=== PATIENT | male | born 2000 | race Caucasian/White ===

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

== ENCOUNTER 2022-09-16 14:02 | Emergency (ER) | payer OTHER, SELFPAY ==
[2022-09-16 15:12] LABS: Influenza A PCR NEGATIVE (Negative); Influenza B PCR NEGATIVE (Negative); Resp Syncy Virus RNA Qual PCR NEGATIVE (Negative); SARS COV2 PCR INHOUSE NEGATIVE (Negative)
[2022-09-16 15:21] VITALS: BP 140/73; PULSE 79; RESP 18; TEMP 36.9; O2SAT 97; BMI 33.3
== END 2022-09-16 20:46 | disposition left against medical advice (07) ==
PROVIDERS: Emergency Provider Emergency Medicine
DX: R06.02 Shortness of breath (principal); Z20.822 Contact with and (suspected) exposure to COVID-19
CPT/HCPCS: 0241U; 99281; 99283

== ENCOUNTER 2022-10-20 02:18 | Emergency (ER) | payer OTHER, SELFPAY ==
--- NOTE | ~2022-10-20 | XR_ITS ---
EXAMINATION: XR CHEST CLINICAL INFORMATION: Chest congestion. COMPARISON: Chest radiograph 11/28/2021. TECHNIQUE: Frontal view of the chest was obtained. FINDINGS: Normal appearance of the cardiomediastinal structures. No effusions or pneumothoraces. Normal pattern of pulmonary vasculature. No focal pulmonary consolidation. No skeletal abnormalities identified. XR/XR chest 1V IMPRESSION: Normal chest. Lungs clear.
[2022-10-20 02:29] VITALS: BP 123/75; PULSE 81; RESP 18; TEMP 37.1; O2SAT 96; BMI 29.9
[2022-10-20 04:39] VITALS: BP 122/73; PULSE 69; RESP 18; TEMP 36.3; O2SAT 96
[2022-10-20 06:27] VITALS: BP 145/65; PULSE 80; RESP 18; TEMP 36.8; O2SAT 95
--- NOTE | 2022-10-20 08:26 | ED.GENADULT ---
HPI - General Adult General Chief complaint: Upper Respiratory Symptoms Stated complaint: Respiratory Infection Time Seen by Provider: 10/20/22 08:25 Source: patient Mode of arrival: ambulatory Limitations: no limitations History of Present Illness HPI narrative: Patient is a 22 year old assigned male at with no reported medical history presenting to the emergency department today with a cough. Patient states that over the last 3 days he has had a cough and it does not seem to be getting better. Patient states that he was seen at an Urgent Care yesterday and it hasn't gotten better. Patient denies any dizziness, lightheadedness, abdominal pain, nausea, vomiting, fever, chills, blurry vision, double vision, loss of vision, chest pain, difficulty breathing, shortness of breath, back pain, night sweats, pain with urination, increased urinary frequency, increased urinary urgency, blood in his urine or stool, syncope or a near syncopal episode, recent trauma or falls, bowel incontinence, bladder incontinence, bowel retention, bladder retention, or any other complaints at this time. Onset (ago): day(s) (3) Severity: mild Severity scale (1-10): 3 Relieving factors: none Exacerbating factors: none Associated symptoms: cough Treatments prior to arrival: none Related Data Previous Rx's Medication Instructions Recorded ibuprofen 600 mg tablet 600 mg PO Q8H PRN pain #10 tabs 06/18/21 ondansetron 4 mg disintegrating 4 mg PO Q6H PRN nausea and 11/28/21 tablet vomiting #10 tabs Allergies Allergy/AdvReac Type Severity Reaction Status Date / Time No Known Allergies Allergy Verified 02/11/21 14:14 Review of Systems Constitutional: Constitutional: Reports no additional constitutional complaints, Denies chills, Denies fever(s) and Denies night sweats Eyes: Eyes: Reports no additional eye complaints, Denies blurry vision, Denies change in vision, Denies diplopia, Denies eye discharge, Denies loss of vision and Denies eye pain ENT: Denies dizziness Cardiovascular: Cardiovascular: Reports no additional cardiovascular complaints, Denies chest pain, Denies lightheadedness, Denies Loss of Consciousness and Denies dyspnea Respiratory: Respiratory: Reports no additional respiratory complaints, Reports cough and Denies dyspnea Gastrointestinal: Gastrointestinal: Reports no additional gastrointestinal complaints, Denies abdominal pain, Denies melena, Denies hematochezia, Denies change in bowel habits and Denies change in stool character Genitourinary: Genitourinary: Reports no additional male genitourinary complaints, Denies hematuria, Denies oliguria, Denies difficulty urinating, Denies dysuria, Denies urinary frequency, Denies urinary hesitancy, Denies urinary incontinence and Denies urinary urgency Musculoskeletal: Musculoskeletal: Reports no additional musculoskeletal complaints, Denies numbness and Denies tingling Neurologic: Denies dizziness, Denies loss of vision, Denies numbness and Denies tingling Psychiatric: Psychiatric: Reports no additional psychiatric complaints Endocrine: Endocrine: Reports no additional endocrine complaints Hematologic/Lymphatic: Hematologic/Lymphatic: Reports no additional hematologic/lymphatic complaints Allergic/Immunologic: Allergic/Immunologic: Reports no additional allergic/immunologic complaints [facility]LY [facility] Past Medical History Attestation statement: The following information was validated with the patient. Source: old records reviewed Medical History Asthma Surgical History No pertinent past surgical history Social History Social History Advance Directives: No Advance Directives Information Provided: No Physical Exam ED Vital Signs: Vital Signs - 24 hr 10/20/22 02:29 10/20/22 04:39 10/20/22 06:27 Temperature 98.8 F 97.4 F 98.2 F Pulse Rate 81 69 80 Respiratory Rate 18 18 18 Blood Pressure 123/75 122/73 145/65 H Pulse Oximetry 96 96 95 Oxygen Delivery Method Room Air 10/20/22 09:32 Temperature 98.5 F Pulse Rate 80 Respiratory Rate 14 Blood Pressure 135/75 Pulse Oximetry 96 Oxygen Delivery Method Room Air BMI result Body Mass Index 29.9 Const General: cooperative, no acute distress, alert and awake Nutritional Appearance: well nourished Orientation/consciousness: patient oriented x3 Limitations: no limitations HENMT Head: Yes normal to inspection and Yes atraumatic Ears: hearing grossly normal bilaterally and external ears normal General nose exam: Normal external nose present, no nasal discharge noted and no epistaxis Face and sinus: Yes normal facial exam, No abrasion and No laceration Mouth: Normal oral and palatal mucosa present, no drooling and no muffled voice Eyes General: appearance normal, both eyes and all related structures Periorbital: periorbital findings normal Eyelids: Yes eyelids normal Conjunctivae: conjunctivae normal Pupils: Equal, round and reactive pupils present EOM: EOMs intact bilaterally Neck Neck: Yes normal visual inspection, Yes full ROM and Yes no lymphadenopathy Chest Chest palpation & inspection: normal inspection of the chest Resp Effort & Inspection: normal respiratory effort and able to speak in complete sentences Auscultation: clear to auscultation bilaterally Cardio Rate: regular rate Rhythm: regular rhythm GI Inspection: Yes normal to inspection Neuro General: patient oriented x3 and moves all extremities Cranial nerves: Yes Equal, round and reactive pupils present Cognition (Neuro): normal cognition Motor exam (neuro): 5/5 motor strength present throughout Sensory Exam: Normal double simultaneous stimulation for sensation Coordination: [id number] test normal Extrem General: Yes normal to inspection, Yes full ROM and Yes capillary refill normal Psych Appearance: grossly normal Mental Status: mental status grossly normal Affect: normal affect Attitude: cooperative Thought process: Normal thought process present Thought content: Normal thought content present Insight: Good insight present (Psych) Medical Decision Making Medical Decision Making MDM Narrative: Patient is a 22 year old assigned male at with no reported medical history presenting to the emergency department today with a cough. Patient's physical exam was unremarkable. Patient's RSV/Influenza/COVID-19 swab was negative. Patient's chest x-ray showed no acute process. I explained my physical exam findings as well as all test results to the patient. I answered all questions asked by the patient. I stressed the importance of the patient taking his medication as prescribed. I stressed the importance of the patient following up with his primary care provider. I stressed the importance of the patient returning to the emergency department immediately if his symptoms were to worsen or if he were to develop any dizziness, shortness of breath, difficulty breathing, chest pain, blurry vision, loss of vision, nausea, vomiting, abdominal pain, fever, chills, back pain, or any other complaints. Patient verbalized agreement and understanding with this treatment plan and discharge. Differential Diagnoses: Differential diagnosis (upper respiratory infection) Differential Diagnosis: The differential diagnosis associated with the patient?s presentation includes: Discharge Plan Discharge Clinical Impression: Upper respiratory infection Patient Disposition: Home, Self-Care Instructions: Upper Respiratory Infection (ED) Additional Instructions: Follow up with your primary care provider. Return to the emergency department immediately if your symptoms worsen or if you develop any dizziness, shortness of breath, difficulty breathing, chest pain, blurry vision, loss of vision, nausea, vomiting, abdominal pain, fever, chills, back pain, or any other complaints. Prescriptions: No Action ibuprofen 600 mg tablet 600 mg PO Q8H PRN (Reason: pain) Qty: 10 0RF ondansetron 4 mg tablet,disintegrating 4 mg PO Q6H PRN (Reason: nausea and vomiting) Qty: 10 0RF Referrals: [facility] [place] Family Medicine [Provider Group] (Call to establish and follow up with a primary care provider. If you already have a primary care provider, please follow up with them. ) [facility] [place] Primary CareJohn [Provider Group] (Call to establish and follow up with a primary care provider. If you already have a primary care provider, please follow up with them. ) [facility] [place] Primary CareJudy [Provider Group] (Call to establish and follow up with a primary care provider. If you already have a primary care provider, please follow up with them. ) Stand Alone Forms: Work/School Release Interventions: ED Discharge Assessment Last Done: 10/20/22 09:59 Discharge Date/Time: 10/20/22 10:00 Print Language: Malay
[2022-10-20 09:20] LABS: Influenza A PCR NEGATIVE (Negative); Influenza B PCR NEGATIVE (Negative); Resp Syncy Virus RNA Qual PCR NEGATIVE (Negative); SARS COV2 PCR INHOUSE NEGATIVE (Negative)
[2022-10-20 09:32] VITALS: BP 135/75; PULSE 80; RESP 14; TEMP 36.9; O2SAT 96
--- NOTE | 2022-10-20 09:58 | PC.NURSE ---
PT AWAKE, ALERT AND ORIENTED X 3. SKIN WARM AND DRY RESP UNLABORED. DENIES N/V. AIRWAY PATENT. MANAGING SECRETIONS. SPEAKING IN FULL CLEAR SENTENCES. EVALUATED BY PROVIDER. RESULTS OF SWABS DISCUSSED. PLAN IS FOR DC HOME AND PATIENT IS AGREEABLE.
== END 2022-10-20 10:00 | disposition home or self-care (01) ==
PROVIDERS: Physician Assistant Medical; Emergency Provider Emergency Medicine
DX: J06.9 Acute upper respiratory infection, unspecified (principal); R07.89 Other chest pain; R05.9 Cough, unspecified; Z20.822 Contact with and (suspected) exposure to COVID-19; Z79.899 Other long term (current) drug therapy
CPT/HCPCS: 0241U; 71045; 99283

== ENCOUNTER 2023-04-09 09:11 | Emergency (ER) | payer OTHER, SELFPAY ==
[2023-04-09 09:35] VITALS: BP 146/82; PULSE 83; RESP 20; TEMP 36.6; O2SAT 97; BMI 29.0
--- NOTE | 2023-04-09 09:54 | ED_ITS ---
HPI - Skin/Abscess/Foreign Bdy General Chief complaint: Skin/Abscess/Foreign Body Stated complaint: cyst Time Seen by Provider: 04/09/23 09:41 Source: patient Mode of arrival: ambulatory Limitations: no limitations History of Present Illness HPI narrative: 23 yo male presents to the ER for evaluation of a left upper thigh lesion for the last 2 days. He States it was starting to drain some blood this morning. It is located on the back of his thigh. MD complaint: lesion Onset (ago): day(s) (2) Tetanus up to date: unsure Location: LLE Severity: moderate Relieving factors: none Exacerbating factors: none Context: none Associated symptoms: denies other symptoms Treatments prior to arrival: attempted to drain pus at home Related Data Previous Rx's Medication Instructions Recorded ibuprofen 600 mg tablet 600 mg PO Q8H PRN pain #10 tabs 06/18/21 ondansetron 4 mg disintegrating 4 mg PO Q6H PRN nausea and 11/28/21 tablet vomiting #10 tabs Allergies Allergy/AdvReac Type Severity Reaction Status Date / Time No Known Allergies Allergy Verified 04/09/23 09:37 Review of Systems Review of Systems: Yes all other systems are reviewed and are negative [facility] Past Medical History Medical History Asthma Surgical History No pertinent past surgical history Social History Social History Advance Directives: No Physical Exam Vital Signs: Vital Signs: Last Vital Signs Temp 97.9 F 04/09/23 09:35 Pulse 83 04/09/23 09:35 Resp 20 04/09/23 09:35 BP 146/82 H 04/09/23 09:35 Pulse Ox 97 04/09/23 09:35 O2 Del Method Room Air 04/09/23 09:35 BMI result Body Mass Index 29.0 Appearance: Alert male in his early 20s. No acute distress. HEENT: normal inspection Chest: Normal inspection, equal and symmetrical chest rise and fall. Respiratory: No respiratory distress. speaks in complete sentences Skin: Skin warm and dry. Normal skin color. Normal skin turgor. No rashes. Extremities: Normal external in inspection, normal range of motion. Neuro: Oriented X 3. Grossly normal, steady gait Course Reevaluation(s) Reevaluation #1: Patient was asked to electronic data interchange specialist to a [employer] for better evaluation of the lesion on his leg, he said he was going to the parking lot to get his mother and the never returned back to the treatment room. Patient eloped from the ER prior to full evaluation and treatment. Medical Decision Making Medical Decision Making MDM Narrative: 23-year-old male presents to the ER for evaluation of left upper thigh lesion for the last couple of days with new onset of bloody drainage this morning. Unable to fully evaluate and assess the patient as he eloped from the emergency department prior to full examination and treatment. Differential Diagnosis Differential Diagnoses: The differential diagnosis associated with the presentation includes Abscess, cellulitis, tick bite, other animal bite, folliculitis, abrasion, laceration Prescription Management I considered prescription management with: Antibiotic Critical Care Time Critical Care Time Critical Care Time: No Discharge Plan Discharge Clinical Impression: Leg skin lesion, left Patient Disposition: Elopement Prescriptions: No Action ibuprofen 600 mg tablet 600 mg PO Q8H PRN (Reason: pain) Qty: 10 0RF ondansetron 4 mg tablet,disintegrating 4 mg PO Q6H PRN (Reason: nausea and vomiting) Qty: 10 0RF
== END 2023-04-09 10:19 | disposition left against medical advice (07) ==
PROVIDERS: Emergency Provider Emergency Medicine
DX: L98.9 Disorder of the skin and subcutaneous tissue, unspecified (principal)
CPT/HCPCS: 99281

== ENCOUNTER 2024-04-15 18:53 | Emergency (ER) | payer SELFPAY ==
--- NOTE | ~2024-04-15 | XR_ITS ---
EXAMINATION: XR HAND/WRIST, RIGHT CLINICAL INFORMATION: Punched brick wall. COMPARISON: None TECHNIQUE: PA, lateral, oblique, and scaphoid views of the right hand and wrist. FINDINGS: Scaphoid is intact. No appreciable metacarpal fractures. No fracture. Alignment is anatomic. Joint spaces are maintained. No erosions or soft tissue calcifications. XR/XR hand wrist RT IMPRESSION: Normal radiographs of the hand and wrist.
[2024-04-15 18:56] VITALS: BP 127/76; PULSE 82; RESP 16; TEMP 37.1; O2SAT 98; BMI 30.9
--- NOTE | 2024-04-15 19:25 | ED_ITS ---
HPI - Extremity Injury (Upper) General Chief Complaint: Extremity Problem Stated Complaint: Hand inj Time Seen by Provider: 04/15/24 19:25 Source: patient Mode of arrival: ambulatory Limitations: no limitations History of Present Illness ED Provider: Denice Jaquez PA-C HPI narrative: 24-year-old right-hand dominant male presents to the ER for evaluation of right hand pain for punching a wall. He states he punched a brick wall 1 week ago and his ring finger had to be put back into place. He is concerned he might have re- injured it. He denies any finger pain. The pain is in the 4th metacarpal with movement and palpation. no numbness or tingling. complaint: injury to: right Other Extremity Injury: right: hand Other injuries: none Handedness: right Place: home Severity: moderate Severity scale (1-10): 5 Relieving factors: rest Exacerbating factors: movement of extremity Context: direct blow Associated symptoms: denies other symptoms Related Data Previous Rx's ?Medication ?Instructions ?Recorded ibuprofen 600 mg tablet 600 mg PO Q8H PRN pain #10 tabs 06/18/21 ondansetron 4 mg disintegrating 4 mg PO Q6H PRN nausea and 11/28/21 tablet vomiting #10 tabs Allergies Allergy/AdvReac Type Severity Reaction Status Date / Time No Known Allergies Allergy Verified 04/15/24 18:58 Review of Systems Review of Systems: Yes all other systems are reviewed and are negative [facility] Past Medical History Medical History Asthma Surgical History No pertinent past surgical history Social History Social History Advance Directives: No Advance Directives Information Provided: No Do you have a plan to hurt others: No Plan Physical Exam Vital Signs: Vital Signs: Last Vital Signs Temp 98.7 F 04/15/24 19:31 Pulse 82 04/15/24 19:31 Resp 16 04/15/24 19:31 BP 127/76 04/15/24 19:31 Pulse Ox 98 04/15/24 19:31 O2 Del Method Room Air 04/15/24 19:31 BMI result Body Mass Index 30.9 Appearance: Alert. Oriented X3. No acute distress. HEENT: normal inspection CVS: Normal heart rate and rhythm. Pulses normal. Respiratory: No respiratory distress. Skin: Skin warm and dry. Normal skin color. Normal skin turgor. No rashes. Extremities: right hand with mild swelling of the dorsal hand over the 3rd and 4th metacarpals, tenderness over the 4th distal metacarpal. normal inspection of the fingers. weaker hand grasp of the right due to pain. NV intact distally. Neuro: Oriented X 3. No motor deficit. No sensory deficit. Medical Decision Making Medical Decision Making MDM Narrative: 24-year-old right-hand dominant male presents to the ER for evaluation of right hand pain after he punched a brick wall today. Similar injury 1 week ago requiring finger relocation. No gross deformities on exam. He is tender over the 3rd and 4th metacarpals without any crepitus. Neurovascularly intact distally. X-ray performed. Patient does not want to wait till the results are and because his daughter's birthday is today and they are about to sing happy birthday to her. Placed him in an velcro volar wrist splint in the meantime. Will call him with the results of the x-ray if positive for fracture Differential Diagnosis Differential Diagnoses: The differential diagnosis associated with the presentation includes Hand contusion, hand sprain, hand fracture, finger fracture Independent Interpretation I performed an independent interpretation of an: Plain X-Ray Interpretation: no appreciated fracture or dislocation Radiology Impression Discussion of test interpretation with radiology: I have reviewed the radiologist's reading. Radiologist Impression: EXAMINATION: XR HAND/WRIST, RIGHT CLINICAL INFORMATION: Punched brick wall. COMPARISON: None TECHNIQUE: PA, lateral, oblique, and scaphoid views of the right hand and wrist. FINDINGS: Scaphoid is intact. No appreciable metacarpal fractures. No fracture. Alignment is anatomic. Joint spaces are maintained. No erosions or soft tissue calcifications. XR/XR hand wrist RT IMPRESSION: Normal radiographs of the hand and wrist. External Record Review External record reviewed: Outpatient record and Prior outpatient labs Prescription Management I considered prescription management with: Pain Medication Procedures Orthopedic Splinting/Casting Injury #1: Side: right Upper Extremity Injury Location: wrist and hand Upper Extremity Immobilizer: wrist splint Critical Care Time Critical Care Time Critical Care Time: No Discharge Plan Discharge Clinical Impression: Contusion of hand Patient Disposition: Home, Self-Care Instructions: Contusion in Adults (ED) Additional Instructions: Your x-ray is not yet read by the radiologist. We will call you if you have a fracture that needs splinting. In the meantime where the provided wrist splint for immobilization and support. Limit use of the right hand. Use ice and elevate when possible. Take Motrin Tylenol as needed for pain. Stop punching things that are not pillows Prescriptions: No Action ibuprofen 600 mg tablet 600 mg PO Q8H PRN (Reason: pain) Qty: 10 0RF ondansetron 4 mg tablet,disintegrating 4 mg PO Q6H PRN (Reason: nausea and vomiting) Qty: 10 0RF Interventions: ED Discharge Assessment Last Done: 04/15/24 19:31 Discharge Date/Time: 04/15/24 19:33 Print Language: Czech
[2024-04-15 19:31] VITALS: BP 127/76; PULSE 82; RESP 16; TEMP 37.1; O2SAT 98
== END 2024-04-15 19:33 | disposition home or self-care (01) ==
LOC: HO.ED 19:31
PROVIDERS: Emergency Provider Emergency Medicine
DX: S60.221A Contusion of right hand, initial encounter (principal); W22.09XA Striking against other stationary object, initial encounter; Y93.89 Activity, other specified; Y92.9 Unspecified place or not applicable; Y99.9 Unspecified external cause status
CPT/HCPCS: 29125; 73110; 73130; 99282; 99283

== ENCOUNTER 2024-06-23 19:11 | Emergency (ER) | payer SELFPAY | END 2024-06-23 19:55 | disposition left against medical advice (07) | PROVIDERS: Emergency Provider Emergency Medicine; PCP Pediatrics | DX: M79.643 Pain in unspecified hand (principal); Z53.21 Procedure and treatment not carried out due to patient leaving prior to being seen by health care provider ==

== ENCOUNTER 2025-06-03 17:41 | Emergency (ER) | payer MEDICAID, SELFPAY ==
--- NOTE | ~2025-06-03 | XR_ITS ---
CLINICAL HISTORY: cough, shortness of breath 2 view chest x-ray Comparison: CR/SR - XR CHEST 2 VIEWS - 10/20/22 03:19 EST Findings: Heart size is normal. No consolidation, pleural effusion or pneumothorax. No acute fracture. IMPRESSION: 1. No acute findings. This document has been electronically signed by: Nancy Elise MD on 06/03/2025 18:33:49
--- NOTE | 2025-06-03 17:43 | ECG_ITS ---
Test Reason : cp Blood Pressure : */* mmHG Vent. Rate : 90 BPM Atrial Rate : 90 BPM P-R Int : 142 ms QRS Dur : 84 ms QT Int : 358 ms P-R-T Axes : 23 31 17 degrees QTcB Int : 437 ms Normal sinus rhythm Normal ECG When compared with ECG of 28-Nov-2021 12:55, No significant change was found Referred By: Generic ED Physician Electronically Signed By: Teodoro Valente
[2025-06-03 17:55] VITALS: BP 123/75; PULSE 74; RESP 16; TEMP 36.8; O2SAT 96; BMI 38.4
--- NOTE | 2025-06-03 17:58 | ED_ITS ---
HPI - Chest Pain General Chief Complaint: Upper Respiratory Symptoms Stated Complaint: chest pain ? pneumonia Time Seen by Provider: 06/03/25 19:49 History of Present Illness ED Provider: Laya BALTAZAR narrative: The patient is a 25-year-old male with a history of asthma who has been feeling unwell for about 4 or 5 days with runny nose, cough, chest pain, and a sense of wheezing. No definite fevers. He comes to the emergency room after several days of feeling unwell. He has been using his albuterol inhaler. No pain or swelling in his legs. Related Data Previous Rx's ?Medication ?Instructions ?Recorded ibuprofen 600 mg tablet 600 mg PO Q8H PRN pain #10 t abs 06/18/21 ondansetron 4 mg disintegrating 4 mg PO Q6H PRN nausea and 11/28/21 tablet vomiting #10 tabs azithromycin 250 mg tablet 250 mg PO DAILY 4 days #4 t abs 06/03/25 budesonide-formoterol HFA 160 2 puff inhalation BID #1 0.2 grams 06/03/25 mcg-4.5 mcg/actuation aerosol inhaler prednisone 20 mg tablet 40 mg (2 x 20 mg) PO DAILY 4 days 06/03/25 #8 tabs Allergies Allergy/AdvReac Type Severity Reaction Status Date / Time No Known Allergies Allergy Verified 06/03/25 17:58 Review of Systems Review of Systems: Yes all other systems are reviewed and are negative [facility] Past Medical History Medical History Asthma Surgical History No pertinent past surgical history Social History Social History Smoked in Last 30 Days: No Substance Use Type: Marijuana Substance Use Frequency: Daily Advance Directives: No Advance Directives Information Provided: No Physical Exam Vital Signs: Vital Signs: Last Vital Signs Temp 98.0 F 06/03/25 20:25 Pulse 77 06/03/25 20:25 Resp 20 06/03/25 20:25 BP 144/77 H 06/03/25 20:25 Pulse Ox 98 06/03/25 20:25 O2 Del Method Room Air 06/03/25 20:25 BMI result Body Mass Index 38.4 Const: Other: The patient is a 25-year-old male with a history of asthma. He is awake and alert. He seems to be mildly nasally congested but otherwise does not appear acutely ill. Orientation/consciousness: patient oriented x3 HEENT: Other: The face is symmetrical. ?Mucous membranes moist. Eyes: Other: Pupils are round equal, conjunctivae are clear, extraocular movements intact Neck: Neck: Yes normal visual inspection and Yes full ROM Resp: Other: No obvious increased work of breathing. The patient's lungs seem fairly clear. Possibly some minimal wheezing with a coughs. Cardio: Rate: regular rate Rhythm: regular rhythm Heart sounds: S1 normal heart sound present and S2 normal heart sound present GI: Other: Abdomen is soft and nontender Skin: Other: The skin is dry and unremarkable Neuro: General: patient oriented x3, gait normal, tone normal, moves all extremities, no focal motor deficits and CN's II-XI intact bilaterally Extrem: Other: There is no calf swelling or tenderness. No asymmetry. No peripheral edema. Course Course Course Narrative: Mindy Mills GRAIN RECEIVER 06/03 1758 Defer additional HPI, ROS, PE to primary provider. This is a rapid medical exam. 25-year-old male with a history of asthma here with chest congestion, cough, chest discomfort with coughing and wheezing. Will obtain chest x-ray and viral testing. VSS Medications Administered Discontinued Medications Generic Name Dose Route Start Last Admin Trade Name Freq PRN Reason Stop Dose Admin Azithromycin 500 mg 06/03/25 19:58 06/03/25 20:09 Azithromycin 500 Mg Tablet PO 06/03/25 19:59 500 mg ONCE ONE Administration Prednisone 60 mg 06/03/25 19:58 06/03/25 20:07 Prednisone 20 Mg Tablet PO 06/03/25 19:59 60 mg ONCE ONE Administration Medical Decision Making Medical Decision Making MDM Narrative: The patient is a 25-year-old male who presents with complaints of chest pain and shortness of breath. He has a history of asthma. He is PERC negative. He sounds as though he has a bit of a cold. His chest x-ray is negative. He is negative for COVID, RSV, and the flu. He has an unremarkable EKG that shows normal sinus rhythm at 90 beats per minute. My suspicion is that he probably has a viral respiratory illness which has triggered his asthma to some degree. He will be placed on a short course of prednisone and azithromycin. I will send a prescription for budesonide/formoterol as an inhaler. Lab Data Labs: Lab Results 06/03/25 Range/Units 19:12 Influenza Type A (PCR) NEGATIVE (Negative) Influenza Type B (PCR) NEGATIVE (Negative) RSV RNA Qual (PCR) NEGATIVE (Negative) SARS-CoV-2 RNA (RT-PCR) NEGATIVE (Negative) Discharge Plan Discharge Clinical Impression: Acute asthmatic bronchitis Patient Disposition: Home, Self-Care Instructions: Asthma (ED) Additional Instructions: Your chest x-ray shows no pneumonia. You tested negative for COVID, influenza, and RSV. Your EKGs normal. I think that you have some kind of viral illness that has triggered your asthma. You has been started on a course of prednisone. You received a dose here today. Please take your next dose tomorrow. You have also been started on the antibiotic azithromycin. You received a dose here in the emergency room. Take your next dose tomorrow. You may use your albuterol inhaler 2 puffs every 4 hours as needed. 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 You may use this inhaler just like an albuterol inhaler, 2 puffs every 4 hours as needed. However when you are feeling better I would still continue to take it 1-2 puffs in the morning and 1-2 puffs in the evening every day. Please make a follow up appointment with your regular doctor to discuss your asthma further. Return to the emergency room if you feel significantly worse. Prescriptions: New prednisone 20 mg tablet 40 mg PO DAILY 4 Days Qty: 8 0RF azithromycin 250 mg tablet 250 mg PO DAILY 4 Days Qty: 4 0RF Rx Instructions: start on day 2 of therapy budesonide-formoterol 160-4.5 mcg/actuation HFA aerosol inhaler 2 puff inhalation BID Qty: 10.2 0RF No Action ibuprofen 600 mg tablet 600 mg PO Q8H PRN (Reason: pain) Qty: 10 0RF ondansetron 4 mg tablet,disintegrating 4 mg PO Q6H PRN (Reason: nausea and vomiting) Qty: 10 0RF Referrals: [facility] [Provider Group] Interventions: ED Discharge Assessment Last Done: 06/03/25 20:25 Discharge Date/Time: 06/03/25 20:25 Print Language: Bulgarian
--- NOTE | 2025-06-03 18:47 | PC.NURSE ---
Patient is a 25-year-old male with a history of asthma daily marijuana use presents with chest congestion, cough, intermittent chest pressure with coughing and wheezing since Wednesday. Patient alert and oriented. Lungs clear bilat. Respirations even and non-labored. Abdomen soft, non-tender with positive bowel sounds. Positive pedal pulses with no edema
[2025-06-03 20:00] LABS: Resp Syncy Virus RNA Qual PCR NEGATIVE (Negative); SARS COV2 PCR INHOUSE NEGATIVE (Negative)
--- NOTE | 2025-06-03 20:09 | PC.NURSE ---
pt medicated per mar.
[2025-06-03 20:16] VITALS: BP 144/77; PULSE 77; RESP 20; TEMP 36.7; O2SAT 98
--- NOTE | 2025-06-03 20:17 | PC.NURSE ---
Vitals taken, reviewed discharge instructions with pt , pt verbalized understanding, sign of distress, pt able to speak in full sentence nor sob
[2025-06-03 20:25] VITALS: BP 144/77; PULSE 77; RESP 20; TEMP 36.7; O2SAT 98
== END 2025-06-03 20:25 | disposition home or self-care (01) ==
PROVIDERS: Nurse Practitioner Family; Emergency Provider Emergency Medicine; PCP Pediatrics
DX: J45.909 Unspecified asthma, uncomplicated (principal); R07.89 Other chest pain; Z03.818 Encounter for observation for suspected exposure to other biological agents ruled out
CPT/HCPCS: 71046; 87637; 93005; 99283; 99285

== ENCOUNTER → 2025-06-03 17:43 | Outpatient (BNV) | payer MEDICAID, SELFPAY | PROVIDERS: Emergency Provider Emergency Medicine; PCP Pediatrics; Visit Provider Internal Medicine Cardiovascular Disease | DX: R07.9 Chest pain, unspecified (principal) | CPT/HCPCS: 93010 ==

== ENCOUNTER → 2025-06-03 17:58 | Outpatient (BNV) | payer MEDICAID, SELFPAY | PROVIDERS: PCP Pediatrics; Visit Provider Specialist | DX: R06.02 Shortness of breath (principal) | CPT/HCPCS: 71046 ==

== ENCOUNTER 2025-09-24 20:33 | Inpatient (IN) | payer OTHER, SELFPAY ==
[2025-09-24 20:35] VITALS: BP 161/64; PULSE 105; RESP 20; TEMP 38.6; O2SAT 95; BMI 34.9
[2025-09-24 21:11] LABS: Alanine Aminotransferase 139 U/L (0-40); Albumin Level 4.9 g/dL (3.5-5.0); Alkaline Phosphatase 166 U/L (39-117); Anion Gap 15 (12-20); Aspartate Amino Transferase 77 U/L (5-37); Blood Urea Nitrogen 9 mg/dL (9-16); Calcium 9.2 mg/dL (8.4-10.2); Carbon Dioxide 26 mmol/L (22-29); Chloride 102 mmol/L (96-108); Creatinine Clr Calc Pharmacy 152.3; Estimated Glomerular Filt Rate > 60; Potassium 3.0 mmol/L (3.3-5.1); Sodium 140 mmol/L (135-145); Total Protein 8.3 g/dL (6.5-8.0)
[2025-09-24 21:24] LABS: Hematocrit 43.5 % (42.0-52.0); Hemoglobin 14.7 g/dl (14.0-18.0); Mean Corpuscular HGB Conc 33.8 g/dl (31.0-36.0); Mean Corpuscular Hemoglobin 28.9 pg (27.0-33.0); Mean Corpuscular Volume 85.6 fL (80.0-98.0); NRBC Abs Auto 0.000 X10*3/uL (0.0-0.012); NRBC Pct Auto 0.0 /100WBC (0.0-0.2); Platelet Count 262 X10*3/uL (160-400); Red Blood Count 5.08 X10*6/uL (4.60-5.80); White Blood Count 12.7 X10*3/uL (4.8-10.8)
[2025-09-24] MEDS: oxyCODONE HCl Immed Release 5 MG TABLET PO (21:56)
[2025-09-24] MEDS: Lidocaine HCl 1%/Epi 1:100,000 20 ML VIAL INFILTRATI (22:43)
[2025-09-24 22:44] LABS: Neutrophils Percent Manual 31 % (45-73)
[2025-09-24 22:47] LABS: Atypical Lymph Absolute Manual 0.9 x10*3/uL; Atypical Lymphs Percent Manual 7 % (0-6); Band Neutrophils Percent 13 % (3-5); Eosinophils Absolute Manual 0.3 X10*3/uL (0.0-0.4); Eosinophils Percent Manual 2 % (0-4); Lymphocytes Absolute Manual 5.2 X10*3/uL (1.2-4.9); Lymphocytes Percent Manual 41 % (20-40); Monocytes Absolute Manual 0.8 X10*3/uL (0.1-1.2); Monocytes Percent Manual 6 % (2-11); Neutrophils Absolute Manual 5.6 X10*3/uL (2.0-8.3)
[2025-09-24 22:48] LABS: RBC Morphology NORMAL
[2025-09-24] MEDS: vancomycin/NS 2,000 MG/500 ML PLAST..BAG 250 MG IV (23:34)
--- NOTE | 2025-09-24 23:51 | ED.SKABFB ---
HPI - Skin/Abscess/Foreign Bdy General Chief complaint: Skin/Abscess/Foreign Body Stated complaint: cyst by the tailbone, fever Time Seen by Provider: 09/24/25 20:42 Source: patient Mode of arrival: ambulatory Limitations: no limitations History of Present Illness ED Provider: Dr. Mirta Negrete HPI narrative: Patient comes to the emergency room complaining of a cyst on his tailbone. Patient states it has been growing throughout the last week, today it started draining foul, malodorous drainage. Patient states that at home he has been having subjective fever and chills. Denies chest pain or shortness of breath, denies urinary symptoms. Patient states that he has had abscess in the past in the arms but never in the buttocks area. Related Data Previous Rx's ?Medication ?Instructions ?Recorded ibuprofen 600 mg tablet 600 mg PO Q8H PRN pain #10 tabs 06/18/21 ondansetron 4 mg disintegrating 4 mg PO Q6H PRN nausea and 11/28/21 tablet vomiting #10 tabs azithromycin 250 mg tablet 250 mg PO DAILY 4 days #4 tabs 06/03/25 budesonide-formoterol HFA 160 2 puff inhalation BID #10.2 grams 06/03/25 mcg-4.5 mcg/actuation aerosol inhaler prednisone 20 mg tablet 40 mg (2 x 20 mg) PO DAILY 4 days 06/03/25 #8 tabs Allergies Allergy/AdvReac Type Severity Reaction Status Date / Time No Known Allergies Allergy Verified 09/24/25 20:36 Review of Systems Review of Systems: Constitutional : No Weight loss, No Fever, No Chills, No Night Sweats, No Fatigue, No Malaise ENT/Mouth : No Hearing loss, No Ear Pain, No Nasal Congestion, No Sinus Pain, No Hoarseness, No sore throat, No Rhinorrhea, No Swallowing Difficulty Eyes: No Eye Pain, No Swelling, No Redness, No Foreign Body, No Discharge, No Vision Changes Cardiovascular : No Chest Pain, No SOB, No Dyspnea on Exertion, No Orthopnea, No Edema, No Palpitations Respiratory : No Cough, No Sputum, No Wheezing, No Smoke Exposure, No Dyspnea Gastrointestinal : No Nausea, No Vomiting, No Diarrhea, No Constipation, No abdominal Pain, No Hematochezia, No Melena Genitourinary : no irregular bleeding, No Dysuria, No Urinary Frequency, No Hematuria, No Urinary Incontinence, No Urgency, No Flank Pain, No Urinary Flow Changes, No Hesitancy Musculoskeletal : No joint pain, No Myalgias, No Joint Swelling Skin : Complaining of a large painful cyst draining malodorous purulent material on the coccyx area Neuro : No Weakness, No Numbness, No Paresthesias, No Loss of Consciousness, No Dizziness, No Headache Psych : No Anxiety/Panic, No Depression, No SI/HI/AH/VH, No Social Issues, Heme/Lymph: No Bruising, No Bleeding,No Lymphadenopathy Endocrine : No Polyuria, No Polydipsia, No Temperature Intolerance [facility] Past Medical History Medical History Asthma Surgical History No pertinent past surgical history Social History Social History Substance Use Type: Marijuana Advance Directives: No Advance Directives Information Provided: No Physical Exam Exam: Exam: Appearance: Alert. Oriented X3. No acute distress. Eyes: Pupils equal, round and reactive to light. ENT: Pharynx normal. Neck: Normal inspection. Neck supple. No lymph nodes noted. No crepitus CVS: Normal heart rate and rhythm. Pulses normal. Normal S1 and S2 Respiratory: No respiratory distress. Breath sounds normal. No Wheezing. No rales Abdomen: Soft and nontender. No rigidity. No distention. Skin: Skin warm and dry. Normal skin color. Normal skin turgor. In the patient's lower back, just above the gluteal cleft, there is a large erythematous patch. With bedside ultrasound, I was able to determine that there to loculated cysts right next to each other Extremities: No lower extremity edema. No Lacerations. No Rash Neuro: Oriented X 3. No motor deficit. No sensory deficit. Moving all extremities. No slurred speech. CN 2 through 12 grossly intact Psych: calm, cooperative, normal affect Vital Signs: Vital Signs: Last Vital Signs Temp 101.5 F H 09/24/25 20:35 Pulse 105 H 09/24/25 20:35 Resp 20 09/24/25 20:35 BP 161/64 H 09/24/25 20:35 Pulse Ox 95 09/24/25 20:35 O2 Del Method Room Air 09/24/25 20:35 BMI result Body Mass Index 34.9 Course Course Course Narrative: Based on physical exam and bedside ultrasound, patient has to loculated abscesses/pilonidal cyst. Recommendation: Incision and drainage and start antibiotics. Also, we will obtain blood work since patient has been having fever Patient received p.o. medication for pain, patient agrees with plan I was informed by the patient's nurse that patient has tachycardia, fever and an abscess. At this time, sepsis is not suspected. Patient is empirically being treated with IV fluids based on ideal weight 67 kg, patient is obese. Also antibiotics have been started. All of patient's labs pending. Medications Administered Generic Name Dose Route Start Last Admin Trade Name Freq PRN Reason Stop Dose Admin Sodium Chloride 2,000 mls @ 999 mls/hr 09/24/25 22:48 09/24/25 23:02 Ns IVCONT 09/25/25 00:48 999 mls/hr .Q2H1M ONE Administration Vancomycin HCl 2,000 mg in 500 mls @ 250 mls/hr 09/24/25 22:50 09/24/25 23:34 Vancomycin/Ns IV 09/25/25 00:49 250 mls/hr ONCE ONE Administration Sodium Chloride 3 ml 09/25/25 00:00 09/25/25 00:16 0.9 % Sodium Chloride Flush 3 Ml Syringe IVFLUSH Not Given QSHIFT NANCY Discontinued Medications Generic Name Dose Route Start Last Admin Trade Name Freq PRN Reason Stop Dose Admin Acetaminophen 975 mg 09/24/25 23:47 09/24/25 23:52 Acetaminophen 325 Mg Tablet PO 09/24/25 23:48 975 mg ONCE ONE Administration Piperacillin Sod/Tazobactam 50 mls @ 100 mls/hr 09/24/25 22:50 09/24/25 23:32 Sod 3.375 gm/ Sodium Chloride IV 09/24/25 23:19 Infused ONCE ONE Infusion Ibuprofen 600 mg 09/24/25 23:47 09/24/25 23:52 Ibuprofen 600 Mg Tablet PO 09/24/25 23:48 600 mg ONCE ONE Administration Lidocaine/Epinephrine 20 ml 09/24/25 21:43 09/24/25 22:43 Lidocaine Hcl 1%/Epi 1:100,000 20 Ml Vial INFILTRATI 09/24/25 21:44 20 ml ONCE ONE Administration Oxycodone HCl 5 mg 09/24/25 21:45 09/24/25 21:56 Oxycodone Hcl Immed Release 5 Mg Tablet PO 09/24/25 21:46 5 mg ONCE ONE Administration Potassium Chloride 20 meq 09/24/25 23:50 09/25/25 00:16 Potassium Chloride Er 20 Meq Tab.Er.Prt PO 09/24/25 23:51 20 meq ONCE ONE Administration Medical Decision Making Medical Decision Making MDM Narrative: We obtain a large amount of pus. Patient has no packing My interpretation of labs: Patient's white blood cell count elevated along with bandemia of 13%. Chemistry shows a slightly decreased potassium which was repleted p.o. Patient tolerated well the procedure. Patient was started on IV fluids, vancomycin and Zosyn. Patient's lactic acid normal, no episodes of hypotension. Sepsis is not suspected Lab Data 09/24/25 20:52 09/24/25 20:52 Labs: Lab Results 09/24/25 Range/Units 20:52 WBC 12.7 H (4.8-10.8) X10*3/uL RBC 5.08 (4.60-5.80) X10*6/uL Hgb 14.7 (14.0-18.0) g/dl Hct 43.5 (42.0-52.0) % MCV 85.6 (80.0-98.0) fL MCH 28.9 (27.0-33.0) pg MCHC 33.8 (31.0-36.0) g/dl RDW 13.4 (11.0-16.0) % Plt Count 262 (160-400) X10*3/uL MPV 10.4 (9.4-12.4) fL Immature Gran % (Auto) Cancelled Neut % (Auto) Cancelled Lymph % (Auto) Cancelled [place] % (Auto) Cancelled Eos % (Auto) Cancelled Baso % (Auto) Cancelled Lymph # (Auto) Cancelled [place] # (Auto) Cancelled Eos # (Auto) Cancelled Baso # (Auto) Cancelled Abs Immat Gran (auto) Cancelled Absolute Neuts (auto) Cancelled Absolute Nucleated RBC 0.000 (0.0-0.012) X10*3/uL Nucleated RBC % (auto) 0.0 (0.0-0.2) /100WBC Neutrophils % (Manual) 31 L (45-73) % Band Neutrophils % 13 H (3-5) % Lymphocytes % (Manual) 41 H (20-40) % Atypical Lymphs % (Man) 7 H (0-6) % Monocytes % (Manual) 6 (2-11) % Eosinophils % (Manual) 2 (0-4) % Abs Neuts (Manual) 5.6 (2.0-8.3) X10*3/uL Lymphocytes # (Manual) 5.2 H (1.2-4.9) X10*3/uL Atyp Lymphs # (Manual) 0.9 x10*3/uL Monocytes # (Manual) 0.8 (0.1-1.2) X10*3/uL Eosinophils # (Manual) 0.3 (0.0-0.4) X10*3/uL Platelet Estimate NORMAL (NORMAL) Plt Morphology Comment NORMAL RBC Morphology NORMAL Smear Tech's Comments MANUAL DIFF Sodium 140 (135-145) mmol/L Potassium 3.0 L (3.3-5.1) mmol/L Chloride 102 (96-108) mmol/L Carbon Dioxide 26 (22-29) mmol/L Anion Gap 15 (12-20) BUN 9 (9-16) mg/dL Creatinine 0.80 (0.5-1.4) mg/dL Estim Creat Clear Calc 152.3 Estimated GFR > 60 Random Glucose 106 (60-115) mg/dL Lactic Acid 1.0 (0.5-2.0) mmol/L Calcium 9.2 D (8.4-10.2) mg/dL Total Bilirubin 1.4 H (0.0-1.0) mg/dL Direct Bilirubin 0.6 H (0.0-0.5) mg/dL AST 77 H (5-37) U/L ALT 139 H (0-40) U/L Alkaline Phosphatase 166 H (39-117) U/L Total Protein 8.3 H (6.5-8.0) g/dL Albumin 4.9 (3.5-5.0) g/dL Procedures Abscess I/D Site: other (Pilonidal cyst) Local Anesthetic: lidocaine 1% and with epi Amount of anesthesia used (mL): 10 Technique: incised with blade and ultrasound guided Amount of fluid expressed (mL): 20 Sent for culture/gram staining?: No Irrigation: Yes Packing used?: [email or web address] Critical Care Time Critical Care Time Critical Care Time: Yes Total Critical Care Time: 60 Attestation: I have personally provided critical care time. Time includes review of lab data, radiology results, discussion with consultants, and monitoring for potential decompensation. Intervention performed as documented. Discharge Plan Discharge Clinical Impression: Pilonidal cyst with abscess, Fever Patient Disposition: Admitted As Inpatient Print Language: Croatian
--- NOTE | 2025-09-24 23:53 | P.HPHOSP_ITS ---
History of Present Illness Date of Service: 09/24/25 Chief Complaint: Pilonidal cyst a 25-year-old man with PMH of asthma who presents with a pilonidal cyst drainage and fever with pain. He reports recent onset of pain, swelling, and drainage from the area. On evaluation, the cyst was incised and drained without complications by ED provider. Post-procedure, the patient developed a fever. Laboratory studies reveal leukocytosis with a WBC of 12.7 ?10?/?L and 13% band forms, consistent with sepsis. He has been started on intravenous fluids, vancomycin, and zosyn. Blood pressure and other vital signs remain stable, and he is currently hemodynamically stable. The patient is being monitored for response to therapy and any potential progression of infection. Review of Systems 2 Review of Systems: reporting fever, chills No chest pain, palpitation No shortness of breath or coughing No abdominal pain, nausea or vomiting No urinary symptoms PMFSH Medical History Asthma Surgical History No pertinent past surgical history Social History Household Members: Family Housing: House Do you presently have visiting nurse or other home services: No Patient Tobacco Use Status: Never used Tobacco Substance Use Type: Marijuana Have you been hit, kicked, punched, or otherwise hurt by someone within the past year? If so, by whom?: No Do you feel safe in your current relationship?: Yes Is there a partner from a previous relationship who is making you feel unsafe now?: No Are you made to feel afraid or neglected: No Advance Directives: No Advance Directives Information Provided: No Do you have a plan to hurt others: No Plan Recently lost weight without trying: No How much weight loss: Not applicable Eating poorly because of decreased appetite: No Nutrition screen score: 0 Nutrition Risks: No Nutritional Risk Poor oral hygiene: No Meds Allergies Allergy/AdvReac Type Severity Reaction Status Date / Time No Known Allergies Allergy Verified 09/24/25 20:36 Active Medications: Current Medications Sodium Chloride (Ns) 2,000 mls @ 999 mls/hr IVCONT .Q2H1M ONE Stop: 09/25/25 00:48 Last Admin: 09/24/25 23:02 Dose: 999 mls/hr Vancomycin HCl (Vancomycin/Ns) 2,000 mg in 500 mls @ 250 mls/hr IV ONCE ONE Stop: 09/25/25 00:49 Last Admin: 09/24/25 23:34 Dose: 250 mls/hr Potassium Chloride (Potassium Chloride Er 20 Meq Tab.Er.Prt) 20 meq PO ONCE ONE Stop: 09/24/25 23:51 Physical Exam 2 Vital Signs and Narrative: Vital Signs: Last Vital Signs Temp 101.5 F H 09/24/25 20:35 Pulse 105 H 09/24/25 20:35 Resp 20 09/24/25 20:35 BP 161/64 H 09/24/25 20:35 Pulse Ox 95 09/24/25 20:35 O2 Del Method Room Air 09/24/25 20:35 BMI result Body Mass Index 34.9 Const: Other: Constitutional : Awake, interactive, not in distress Neck : Normal inspection, Supple Cardiovascular : RRR, no JVP, no lower extremity edema Respiratory : good bilateral air entry, no crackles, wheezes or rhonchi Gastrointestinal: soft, lax, Normal bowel sounds, Non tender Skin : Warm, Dry, Polynidal cyst covered with dressing with no drainage noticed Neurological : Alert & oriented x3, No focal deficit Results Labs 09/25/25 05:45 09/25/25 05:45 Labs: Laboratory Results - last 24 hr 09/24/25 20:52 MCV 85.6 MCH 28.9 MCHC 33.8 RDW 13.4 Plt Count 262 MPV 10.4 Immature Gran % (Auto) Cancelled Neut % (Auto) Cancelled Lymph % (Auto) Cancelled [place] % (Auto) Cancelled Eos % (Auto) Cancelled Baso % (Auto) Cancelled Lymph # (Auto) Cancelled [place] # (Auto) Cancelled Eos # (Auto) Cancelled Baso # (Auto) Cancelled Abs Immat Gran (auto) Cancelled Absolute Neuts (auto) Cancelled Absolute Nucleated RBC 0.000 Nucleated RBC % (auto) 0.0 Neutrophils % (Manual) 31 L Band Neutrophils % 13 H Lymphocytes % (Manual) 41 H Atypical Lymphs % (Man) 7 H Monocytes % (Manual) 6 Eosinophils % (Manual) 2 Abs Neuts (Manual) 5.6 Lymphocytes # (Manual) 5.2 H Atyp Lymphs # (Manual) 0.9 Monocytes # (Manual) 0.8 Eosinophils # (Manual) 0.3 Platelet Estimate NORMAL Plt Morphology Comment NORMAL RBC Morphology NORMAL Smear Tech's Comments MANUAL DIFF Anion Gap 15 Estim Creat Clear Calc 152.3 Estimated GFR > 60 Random Glucose 106 Lactic Acid 1.0 Calcium 9.2 D Total Bilirubin 1.4 H Direct Bilirubin 0.6 H AST 77 H ALT 139 H Alkaline Phosphatase 166 H Total Protein 8.3 H Albumin 4.9 Assessment and Plan (1) Pilonidal cyst with abscess: Status: Acute (2) Sepsis: Status: Acute (3) Acute hypokalemia: Status: Acute Plan a 25-year-old man with PMH of asthma who presents with a pilonidal cyst drainage and fever with pain. Sepsis 2/2 infected Pilonidal cyst Has Leukocytosis, Bandemia and fever Drained in ED: pus was not sent for cultures check MRSA Nares Pending blood cultures Broad spectrum Abx with Vancomycin and Zosyn Get surgery consult for follow up Acute hypokalemia potassium replaced, follow BMP Acute transaminitis likely 2/2 Sepsis, to follow LFT Asthma Continue Symbicort Obesity Advised to lose weight DVT PPx SCDs The patient will need 2 overnight hospital stay for treatment of sepsis pending final blood cultures. Quality Stroke Does the patient have a stroke diagnosis?: No VTE Prior VTE?: No VTE Risk Level:: Medical - moderate - high VTE Device Contraindication: N/A - Device Ordered VTE Drug Contraindication: Treatment Not Indicated
--- NOTE | 2025-09-25 00:15 | PC.NURSE ---
Pt reports itching and mild hives on back/right shoulder area. Vancomycin paused. Pt denies difficulty breathing. Respirations even and unlabored. Provider notified. Per provider, vanco is to be continued at a slower rate.
[2025-09-25] MEDS: Potassium Chloride ER 20 MEQ TAB.ER.PRT PO (00:16)
[2025-09-25] MEDS: Potassium Chloride Packet 20 MEQ PACKET 40 MEQ PO (01:09)
[2025-09-25 01:11] VITALS: BP 100/52; PULSE 75; RESP 19; TEMP 36.7; O2SAT 97
--- NOTE | 2025-09-25 01:13 | PC.NURSE ---
Pt reports itching and hives have resolved since slowing the rate of vancomycin infusion.
[2025-09-25 01:48] VITALS: BMI 37.6
[2025-09-25] MEDS: Flu Vacc TS2025-26(6mo up)/PF 0.5 ML SYRINGE IM (02:18)
[2025-09-25 02:25] VITALS: BP 136/89; PULSE 80; RESP 18; TEMP 36.6; O2SAT 96
[2025-09-25 03:25] LABS: Appearance Urine Cloudy; Glucose Urine UA Negative (Negative); PH 5.5 (5.0-9.0); Specific Gravity - Urine 1.025 (1.005-1.025); UMIC TRIGGER UACC YES
[2025-09-25 03:44] VITALS: BP 123/68; PULSE 76; RESP 18; TEMP 36.6; O2SAT 98
[2025-09-25 04:28] LABS: MRSA Nasal PCR NEGATIVE (Negative); SA Nasal PCR NEGATIVE (Negative)
--- NOTE | 2025-09-25 06:05 | P.CONGS_ITS ---
History of Present Illness Consult details Consult date: 09/25/25 <ELSA Cooper Last Filed: 09/25/25 08:48> Reason for consult: wound care (abscess) <ELSA Cooper Last Filed: 09/25/25 08:48> Requesting physician: Kiarra Fuller <ELSA Cooper Last Filed: 09/25/25 08:48> Narrative: 25 year old male with no significant PMH who presented to the ED with complaints of perirectal pain. Patient states he noticed it was uncomfortable to sit over the last week and he had some hardness and swelling of his buttocks but he thought he just pulled something at work. Yesterday he took a bath and it became very painful, swollen and began to drain. The drainage was malodorous. He also reports subjective fever and chills along with anorexia. Patient states that he has had abscess in the past in the arms but never in the buttocks area. Work up in the ED included CBC, BMP, LFTs significant for a leukocytosis of 12.7 with mildly elevated LFTs. Bedside US in the ED showed loculated cyst at the gluteal cleft with surrounding cellulitis suggestive of pilonidal cyst/abscess. I&D was therefore carried out by the ED provider. He was admitted to the hospitalist service. He is on IV zosyn. General surgery was consulted for further management of the abscess site. He reports significant improvement in the pain this morning. <ELSA Cooper Last Filed: 09/25/25 08:48> Review of Systems 2 Constitutional: Constitutional: Reports as per HPI <ELSA Cooper Last Filed: 09/25/25 08:48> ENT: Denies dizziness <ELSA Cooper Last Filed: 09/25/25 08:48> Cardiovascular: Cardiovascular: Denies chest pain and Denies dyspnea < ELSA Cooper Last Filed: 09/25/25 08:48> Respiratory: Respiratory: Denies dyspnea <ELSA Cooper Last Filed: 09/25/25 08:48> Gastrointestinal: Gastrointestinal: Denies diarrhea, Denies nausea and Denies vomiting <Tova Diaz PA-C Last Filed: 09/25/25 08:48> Integumentary/Breasts: Skin/Breast: Reports as per HPI <Tova Diaz PA-C Last Filed: 09/25/25 08:48> Neurologic: Denies dizziness <Tova Diaz PA-C Last Filed: 09/25/25 08:48> [facility] Past Medical History Medical History: Medical History Asthma <Tova Diaz PA-C Last Filed: 09/25/25 08:48> Surgical History Surgical History: Surgical History No pertinent past surgical history <Tova Diaz PA-C Last Filed: 09/25/25 08:48> Social History Social History: Social History Household Members: Family Housing: House Do you presently have visiting nurse or other home services: No Patient Tobacco Use Status: Never used Tobacco Substance Use Type: Marijuana Have you been hit, kicked, punched, or otherwise hurt by someone within the past year? If so, by whom?: No Do you feel safe in your current relationship?: Yes Is there a partner from a previous relationship who is making you feel unsafe now?: No Are you made to feel afraid or neglected: No Advance Directives: No Advance Directives Information Provided: No Do you have a plan to hurt others: No Plan Recently lost weight without trying: No How much weight loss: Not applicable Eating poorly because of decreased appetite: No Nutrition screen score: 0 Nutrition Risks: No Nutritional Risk Poor oral hygiene: No <ELSA Cooper Filed: 09/25/25 08:48> Meds Allergies/Adverse reactions: Allergies Allergy/AdvReac Type Severity Reaction Status Date / Time No Known Allergies Allergy Verified 09/24/25 20:36 <Tova Diaz PA-C Last Filed: 09/25/25 08:48> Active Medications: Current Medications Acetaminophen (Acetaminophen 325 Mg Tablet) 650 mg PO Q6H PRN PRN Reason: Pain, Mild 1-3,fever,headache Albuterol Sulfate (Albuterol Sulfate (0.083%) 2.5 Mg/3 Ml Vial.Neb) 2.5 mg INHALE Q4H PRN PRN Reason: Wheezing Calcium Carbonate (Calcium Carbonate 750 Mg Tab.Chew) 750 mg PO Q4H PRN PRN Reason: Heartburn Fluticasone/Vilanterol (Fluticasone/Vilanterol 200/25 Blst.W.Dev) 1 puff INHALE RDAILY [facility] Piperacillin Sod/Tazobactam (Sod 3.375 gm/ Sodium Chloride) 50 mls @ 100 mls/hr IV Q6H [facility] Last Infusion: 09/25/25 05:35 Dose: Infused Ibuprofen (Ibuprofen 400 Mg Tablet) 400 mg PO Q6H PRN PRN Reason: moderate pain Ketorolac Tromethamine (Ketorolac Tromethamine 30 Mg/Ml Vial) 15 mg IVPUSH Q6H PRN PRN Reason: Pain, Severe (Pain Scale 7-10) Stop: 09/29/25 23:55 Magnesium Hydroxide (Milk Of Magnesia 30 Ml Oral.Susp) 30 ml PO DAILY PRN PRN Reason: Constipation Melatonin (Melatonin 3 Mg Tablet) 6 mg PO BEDTIME PRN PRN Reason: Insomnia Ondansetron HCl (Ondansetron Hcl 4 Mg/2 Ml Vial) 4 mg IVPUSH Q8H PRN PRN Reason: Nausea and Vomiting Pharmacy Consult (Consult Rx Vancomycin Dosing) 1 each MISCELLANE DAILY PRN PRN Reason: Consult order Sodium Chloride (0.9 % Sodium Chloride Flush 3 Ml Syringe) 3 ml IVFLUSH QSHIFT [facility] Last Admin: 09/25/25 00:16 Dose: Not Given <Tova Diaz PA-C - Last Filed: 09/25/25 08:48> Home medications: Home Medications ?Medication ?Instructions ?Recorded ?Confirmed ?Last Taken ?Type No Known Home Meds 09/25/25 09/25/25 Un known History <Tova Diaz PA-C - Last Filed: 09/25/25 08:48> Physical Exam 2 Vital Signs: Vital Signs: Last Vital Signs Temp 97.8 F 09/25/25 03:44 Pulse 76 09/25/25 03:44 Resp 18 09/25/25 03:44 BP 123/68 09/25/25 03:44 Pulse Ox 98 09/25/25 03:44 O2 Del Method Room Air 09/25/25 03:44 BMI result Body Mass Index 37.6 <ELSA Cooper Last Filed: 09/25/25 08:48> Const: General: comfortable, no acute distress and alert <Tova Diaz PA-C - Last Filed: 09/25/25 08:48> Resp: Effort & Inspection: normal respiratory effort <ELSA Cooper Last Filed: 09/25/25 08:48> Skin: Other: superior aspect of gluteal cleft - two I&D sites with packing in place, most of the packing was removed, some sanguineous drainage but no remaining purulence, has mild persistent induration and erythema, no further fluctuance, sinus noted inferiorly suggesting pilonidal disease <ELSA Cooper Last Filed: 09/25/25 08:48> Results Labs Result diagrams: 09/25/25 05:45 09/25/25 05:45 <ELSA Cooper Last Filed: 09/25/25 08:48> Labs: Abnormal lab results 09/24/25 09/25/25 Range/Units 20:52 02:51 WBC 12.7 H (4.8-10.8) X10*3/uL Neutrophils % (Manual) 31 L (45-73) % Band Neutrophils % 13 H (3-5) % Lymphocytes % (Manual) 41 H (20-40) % Atypical Lymphs % (Man) 7 H (0-6) % Lymphocytes # (Manual) 5.2 H (1.2-4.9) X10*3/uL Potassium 3.0 L (3.3-5.1) mmol/L Total Bilirubin 1.4 H (0.0-1.0) mg/dL Direct Bilirubin 0.6 H (0.0-0.5) mg/dL AST 77 H (5-37) U/L ALT 139 H (0-40) U/L Alkaline Phosphatase 166 H (39-117) U/L Total Protein 8.3 H (6.5-8.0) g/dL Urine Protein 30 (1+) H (Neg-Trace) mg/dL Short CBC 09/24/25 Range/Units 20:52 WBC 12.7 H (4.8-10.8) X10*3/uL Hgb 14.7 (14.0-18.0) g/dl Hct 43.5 (42.0-52.0) % Plt Count 262 (160-400) X10*3/uL BMP 09/24/25 20:52 Sodium 140 Potassium 3.0 L Chloride 102 Carbon Dioxide 26 BUN 9 Creatinine 0.80 Calcium 9.2 D Liver Function 09/24/25 Range/Units 20:52 Total Bilirubin 1.4 H (0.0-1.0) mg/dL Direct Bilirubin 0.6 H (0.0-0.5) mg/dL AST 77 H (5-37) U/L ALT 139 H (0-40) U/L Alkaline Phosphatase 166 H (39-117) U/L Albumin 4.9 (3.5-5.0) g/dL Urine 09/25/25 Range/Units 02:51 Urine Color Dark Yellow Urine Appearance Cloudy Urine pH 5.5 (5.0-9.0) Ur Specific [place] 1.025 (1.005-1.025) Urine Protein 30 (1+) H (Neg-Trace) mg/dL Urine Glucose (UA) Negative (Negative) mg/dL All other labs normal. <Tova Diaz PA-C - Last Filed: 09/25/25 08:48> Imaging Additional studies: labs reviewed <Tova Diaz PA-C - Last Filed: 09/25/25 08:48> Assessment and Plan (1) Pilonidal cyst with abscess: Status: Acute <Tova Diaz PA-C - Last Filed: 09/25/25 08:48> The patient had a pilonidal abscess which was drained last night Areas seems to be much improved with no significant residual induration or fluctuance Drain in place He can be discharged and I will follow him in the office to remove the drain this week I have discussed with him and his mother the benefit of having formal excision at some point down the line Okay to continue with the antibiotics He seems to be good to be discharged today with good wound care Seen and examined independently <Gigi Parmar MD - Last Filed: 09/25/25 09:12> 25 year old male with no significant PMH who presented to the ED with complaints of perirectal pain and with increasing swelling and drainage. Leukocytosis on admission labs with bedside exam and US suggestive of pilonidal cyst and abscess. I&D was performed in the ED. WBC now normalized. This appears adequately drained on exam today with no significant surrounding cellulitic changes. Most of the packing was removed. Ok to shower, encouraged sitz baths TID and following BMs to keep the area clean. Can be discharged on oral abx with follow up in the office in 1-2 weeks for a wound check when medically cleared. Will remove all packing prior to dc. Patient comfortable with plan. <Tova Diaz PA-C - Last Filed: 09/25/25 08:48> Procedures Date of Service Date of Service: 09/25/25 <Tova Diaz PA-C - Last Filed: 09/25/25 08:48> 09/25/25 <Gigi Parmar MD - Last Filed: 09/25/25 09:12>
[2025-09-25 06:12] LABS: Hematocrit 36.9 % (42.0-52.0); Hemoglobin 12.2 g/dl (14.0-18.0); Imm Gran Abs Auto 0.05 X10*3/uL (0.00-0.03); Imm Gran Pct Auto 0.6 % (0.0-0.4); Lymphocytes Absolute Auto 4.6 X10*3/uL (1.2-4.9); MANUAL DIFF FLAG SCAN; Mean Corpuscular HGB Conc 33.1 g/dl (31.0-36.0); Mean Corpuscular Hemoglobin 28.7 pg (27.0-33.0); Mean Corpuscular Volume 86.8 fL (80.0-98.0); NRBC Abs Auto 0.000 X10*3/uL (0.0-0.012); NRBC Pct Auto 0.0 /100WBC (0.0-0.2); Platelet Count 206 X10*3/uL (160-400); Red Blood Count 4.25 X10*6/uL (4.60-5.80); SCAN SMEAR FLAG 1; White Blood Count 8.1 X10*3/uL (4.8-10.8)
[2025-09-25 06:19] LABS: Anion Gap 10 (12-20); Blood Urea Nitrogen 8 mg/dL (9-16); Calcium 7.7 mg/dL (8.4-10.2); Carbon Dioxide 25 mmol/L (22-29); Chloride 109 mmol/L (96-108); Creatinine Clr Calc Pharmacy 171.0; Estimated Glomerular Filt Rate > 60; Potassium 3.9 mmol/L (3.3-5.1); Sodium 140 mmol/L (135-145)
--- NOTE | 2025-09-25 06:39 | PHA.PROG ---
Admission Date/Time: September 24, 2025 23:56 Indication: skin and skin structure Weight in k.5 kg Adjusted body weight in Kg: [place] body weight in Kg: Obesity Dosing Indication % IBW: BMI 37.6 Serum Creatinine - Last 168 Hours 09/24/25 09/25/25 20:52 05:45 Creatinine 0.80 0.74 Estimated CrCl and GFR - Last 168 Hours 09/24/25 09/25/25 20:52 05:45 Estim Creat Clear Calc 152.3 171.0 Estimated GFR > 60 > 60 Vancomycin Loading Dose: 2000mg X1 Current Vancomycin Dosing Regimen: 1500mg Q12H Vancomycin Monitoring using AUC goal of 400 - 600 range with trough as surrogate marker: 552 Date and Time for next Vancomycin Level to be drawn: 09/26 @1000 Pharmacist Comments on Vancomycin Plan: Pt's renal function good, BMI elevated. Starting off more aggressive to get to steady state. Predicted trough 17. Vancomycin dosing will take advantage of [facility] as a clinical decision support tool that uses Bayesian modeling to calculate individual patient's pharmacokinetic parameters and forecast the patient's drug concentration time course with the target goal AUC 24 range of 400 - 600 mg/L/hr.
[2025-09-25 07:22] VITALS: BP 145/65; PULSE 79; RESP 16; TEMP 36.1; O2SAT 98
--- NOTE | 2025-09-25 08:41 | PHA.MEDREC ---
Addendum entered by Pardeep Deng RPh 09/25/25 08:52: MED REC REVIEWED BY [facility] Original Note: Pharmacy Consult ? Medication Reconciliation Pharmacy has completed the medication reconciliation. Patient states he only uses a Ventolin HFA inhaler PRN, however he hasn't filled it in a few years due to him not having insurance.
--- NOTE | 2025-09-25 10:28 | MHC.CM.PN ---
CM MET WITH PT AT BEDSIDE WITH MOTHER. PT LIVES WITH FAMILY AND IS FUNCTIONALLY INDEPENDENT, EMPLOYED. NO SERVICES OR DME. + HCP NO PCP , HAS NEW PT APPT 10/18 FOR [facility]. DP: PT HAS BEEN MEDICALLY CLEARED FOR DC HOME, NO SERVICES. MOTHER WILL TRANSPORT
--- NOTE | 2025-09-25 10:58 | PM.DS ---
DS: Providers Provider Date of Service: 09/25/25 Date of admission: 09/24/25 23:56 Date of discharge: 09/25/25 Primary care physician: Chiquis Reeves MD Consults: 09/24/25 23:56 Consult to General Surgery Routine Consulting Provider: [facility] General Surgeons Reason for consultation: Pilonidal cyst infection DS: Diagnosis Discharge Diagnosis (1) Pilonidal cyst with abscess: Status: Acute DS: Summary Hospital Course Hospital Course: History and physical as per admitting provider. a 25-year-old man with PMH of asthma who presents with a pilonidal cyst drainage and fever with pain. He reports recent onset of pain, swelling, and drainage from the area. On evaluation, the cyst was incised and drained without complications by ED provider. Post-procedure, the patient developed a fever. Laboratory studies reveal leukocytosis with a WBC of 12.7 ?10?/?L and 13% band forms, consistent with sepsis. He has been started on intravenous fluids, vancomycin, and zosyn. Blood pressure and other vital signs remain stable, and he is currently hemodynamically stable. The patient is being monitored for response to therapy and any potential progression of infection. 25-year-old man treated for sepsis secondary to infected pilonidal cyst with abscess. Drained in the ER, treated with broad-spectrum antibiotics vancomycin and Zosyn. MRSA swab negative. Seen evaluated by General surgery who recommended outpatient follow up in 1 week and to follow up wound care orders. Patient should follow up with Dermatology outpatient for diagnosis of frequent cysts. Acute hypokalemia. Repleted and resolved Acute transaminitis. Likely secondary to sepsis. Trended down Asthma. No exacerbation. Continue home medications Obesity class 3. BMI 37.6. Discussed importance of weight management as this may be contributing to worsening of other comorbidities Time Attestation Discharge Coordination Time (in mins): 42 Quality: Safe Use of Opioids Does Pt have an Active Cancer Diagnosis on the Problem List?: No Quality: Stroke Does the patient have a stroke diagnosis?: No Physical Exam Exam: Exam: Appearing in no acute distress head is normocephalic atraumatic eyes pupils are PERRLA sclera is anicteric mouth throat mucous membranes are intact and moist neck is supple no lymphadenopathy, no JVD noted lung sounds are clear to auscultation heart regular rate rhythm, clear S1, S2 positive bowel sounds, abdomen is soft, nontender neuro patient is alert x3, no focal deficits Vital Signs: Vital Signs: Last Vital Signs Temp 96.9 F 09/25/25 07:22 Pulse 79 09/25/25 07:22 Resp 16 09/25/25 07:22 BP 145/65 H 09/25/25 07:22 Pulse Ox 98 09/25/25 07:22 O2 Del Method Room Air 09/25/25 07:22 BMI result Body Mass Index 37.6 DS: Data Data Completed and Pending Labs on day of discharge: Laboratory Results - last 24 hr 09/24/25 09/25/25 09/25/25 20:52 02:36 02:51 WBC 12.7 H RBC 5.08 Hgb 14.7 Hct 43.5 MCV 85.6 MCH 28.9 MCHC 33.8 RDW 13.4 Plt Count 262 MPV 10.4 Immature Gran % (Auto) Cancelled Neut % (Auto) Cancelled Lymph % (Auto) Cancelled [place] % (Auto) Cancelled Eos % (Auto) Cancelled Baso % (Auto) Cancelled Lymph # (Auto) Cancelled [place] # (Auto) Cancelled Eos # (Auto) Cancelled Baso # (Auto) Cancelled Abs Immat Gran (auto) Cancelled Absolute Neuts (auto) Cancelled Absolute Nucleated RBC 0.000 Nucleated RBC % (auto) 0.0 Neutrophils % (Manual) 31 L Band Neutrophils % 13 H Lymphocytes % (Manual) 41 H Atypical Lymphs % (Man) 7 H Monocytes % (Manual) 6 Eosinophils % (Manual) 2 Abs Neuts (Manual) 5.6 Lymphocytes # (Manual) 5.2 H Atyp Lymphs # (Manual) 0.9 Monocytes # (Manual) 0.8 Eosinophils # (Manual) 0.3 Platelet Estimate NORMAL Plt Morphology Comment NORMAL RBC Morphology NORMAL Smear Tech's Comments MANUAL DIFF Sodium 140 Potassium 3.0 L Chloride 102 Carbon Dioxide 26 Anion Gap 15 BUN 9 Creatinine 0.80 Estim Creat Clear Calc 152.3 Estimated GFR > 60 Random Glucose 106 Lactic Acid 1.0 Calcium 9.2 D Total Bilirubin 1.4 H Direct Bilirubin 0.6 H AST 77 H ALT 139 H Alkaline Phosphatase 166 H Total Protein 8.3 H Albumin 4.9 Urine Color Dark Yellow Urine Appearance Cloudy Urine pH 5.5 Ur Specific [place] 1.025 Urine Protein 30 (1+) H Urine Glucose (UA) Negative Urine Ketones Trace Urine Blood Negative Urine Nitrite Negative Ur Leukocyte Esterase Negative Urine RBC 0-2 Urine WBC 0-5 Ur Squamous Epith Cells 3-5 Urine Bacteria None Seen Hyaline Casts 0-2 Nasal Screen MRSA (PCR) NEGATIVE Nasal S. aureus Screen NEGATIVE Nasal MRSA/S.aureus Interp SEE NOTE 09/25/25 05:45 WBC 8.1 RBC 4.25 L Hgb 12.2 L Hct 36.9 L MCV 86.8 MCH 28.7 MCHC 33.1 RDW 13.6 Plt Count 206 MPV 10.3 Immature Gran % (Auto) 0.6 H Neut % (Auto) 31.0 L Lymph % (Auto) 56.9 H [place] % (Auto) 8.6 Eos % (Auto) 2.0 Baso % (Auto) 0.9 Lymph # (Auto) 4.6 [place] # (Auto) 0.7 Eos # (Auto) 0.2 Baso # (Auto) 0.1 Abs Immat Gran (auto) 0.05 H Absolute Neuts (auto) 2.5 Absolute Nucleated RBC 0.000 Nucleated RBC % (auto) 0.0 Neutrophils % (Manual) Band Neutrophils % Lymphocytes % (Manual) Atypical Lymphs % (Man) Monocytes % (Manual) Eosinophils % (Manual) Abs Neuts (Manual) Lymphocytes # (Manual) Atyp Lymphs # (Manual) Monocytes # (Manual) Eosinophils # (Manual) Platelet Estimate Plt Morphology Comment RBC Morphology Smear Tech's Comments VERIFIED Sodium 140 Potassium 3.9 D Chloride 109 H Carbon Dioxide 25 Anion Gap 10 L BUN 8 L Creatinine 0.74 Estim Creat Clear Calc 171.0 Estimated GFR > 60 Random Glucose 98 Lactic Acid Calcium 7.7 L D Total Bilirubin Direct Bilirubin AST ALT Alkaline Phosphatase Total Protein Albumin Urine Color Urine Appearance Urine pH Ur Specific [place] Urine Protein Urine Glucose (UA) Urine Ketones Urine Blood Urine Nitrite Ur Leukocyte Esterase Urine RBC Urine WBC Ur Squamous Epith Cells Urine Bacteria Hyaline Casts Nasal Screen MRSA (PCR) Nasal S. aureus Screen Nasal MRSA/S.aureus Interp Discharge Plan Discharge Anticipated Discharge Date/Time: 09/25/25 10:51 Patient Disposition: Home, Self-Care Discharge Diagnosis: Pilonidal cyst Hypokalemia Referrals: Chiquis Reeves MD [Primary Care Provider, Pediatrics] - 1 Week Gigi Parmar MD [Physician, General Surgery] - 1 Week Referral Note: 1-2 weeks Discharge Medications: New doxycycline hyclate 100 mg tablet 100 mg PO BID Qty: 14 0RF ibuprofen 800 mg tablet 800 mg PO Q8H PRN (Reason: pain) Qty: 12 0RF albuterol sulfate [Ventolin HFA] 90 mcg/actuation HFA aerosol inhaler 1 inh inhalation QID PRN (Reason: shortness of breath or wheezing) Qty: 6.7 0RF Discharge Orders: Discharge Order (Routine); Ordered 09/25/25 Ordered By: Julee Aponte Diet: Advance to usual diet Activity on Discharge: As tolerated Stand Alone Forms: Patient Portal Discharge page Print Language: Amharic Activity Restrictions/Additional Instructions: Dry dressing to I&D site while it remains open and draining, change daily and as needed. Hot sitz baths three times a day and after bowel movements Massage area of the abscess 4 times a day Follow up in office in 1-2 weeks. ([phone]) Call Your Doctor Or Return to ED If: ? ? -Your temperature exceeds 101? F? ? ? -You experience excessive pain or swelling ? ? -You have an unexpected reaction to medication ? ? -You experience continued vomiting/nausea Care Plan Goals: Follow up wound care orders as per General surgery Health Concerns: Pilonidal cyst Hypokalemia Plan of Treatment: Follow up with primary care provider as needed Take all medications as prescribed Assessment: See discharge summary Patient Instructions: Doxycycline (By mouth) (Acticlate, Adoxa, Avidoxy, Monodox, Doryx), Sitz Bath (DC), Abscess Incision and Drainage (DC) Discharge Date/Time: 09/25/25 13:12
[2025-09-25 11:18] LABS: Alanine Aminotransferase 92 U/L (0-40); Albumin Level 3.5 g/dL (3.5-5.0); Alkaline Phosphatase 118 U/L (39-117); Aspartate Amino Transferase 57 U/L (5-37); Total Protein 6.0 g/dL (6.5-8.0)
[2025-09-25 13:03] VITALS: BP 130/69; PULSE 80; RESP 16; TEMP 36.2; O2SAT 99
--- NOTE | 2025-09-26 21:08 | P.CDIM_ITS ---
PROVIDER RESPONSE TEXT: To clarify, the appropriate diagnosis supported by the clinical indicators: Other (explain): approximately 3.5 cm deep QUERY TEXT: PHYSICIAN'S DOCUMENTATION REQUEST Date of Query: 09/26/2025 12:42 PM EST Patient Name: Matheus Trivedi Admit Date: 09/25/2025 Dear Mirta Negrete MD, A review of the medical record indicates additional documentation may be needed. Please review below and update the documentation accordingly. Clinical Indicators: I&D of pilonidal cyst with abscess done in ED on 09/24/25 The following diagnoses or signs and symptoms were noted in the patient record: area with large amount pus packed with Iodoform IV fluids, Vancomycin and Zosyn Based on the above, could you clarify the depth of the I&D: skin subcutaneous fat muscle Other (explain) Clinically unable to determine (explain) Thank you, Reshma Mckeon RN Use of terms such as suspected, likely, concern for, or probable (associated with a specific diagnosis that is being evaluated, monitored, or treated as if it exists) are acceptable and can be coded in the inpatient setting, when documented at the time of discharge. Please use your independent medical judgment in providing your response. THIS QUERY IS PART OF THE PERMANENT MEDICAL RECORD
== END 2025-09-25 13:12 | disposition home or self-care (01) | DRG 710 ==
LOC: HO.ED 21:16 → HO.EDOVER 09-25 00:25 → HO.S3 09-25 01:14
PROVIDERS: Admitting Provider Student in an Organized Health Care Education/Training Program; Emergency Provider Emergency Medicine; PCP Pediatrics; Visit Provider Nurse Practitioner Acute Care
DX: A41.9 Sepsis, unspecified organism (principal); E66.9 Obesity, unspecified; L05.01 Pilonidal cyst with abscess; J45.909 Unspecified asthma, uncomplicated; Z23 Encounter for immunization; Z68.37 Body mass index [BMI] 37.0-37.9, adult
CPT/HCPCS: 36415; 80048; 80076; 81001; 83605; 85007; 85025; 85027; 87040; 87640; 87641; 90656; 99285; J2004; J2543; J3373

== ENCOUNTER → 2025-09-24 23:56 | Outpatient (BNV) | payer OTHER, SELFPAY | PROVIDERS: Admitting Provider Student in an Organized Health Care Education/Training Program; Emergency Provider Emergency Medicine; PCP Pediatrics; Visit Provider Physician Assistant Surgical | DX: L05.01 Pilonidal cyst with abscess (principal) | CPT/HCPCS: 99222 ==

== ENCOUNTER → 2025-09-24 23:56 | Outpatient (BNV) | payer OTHER, SELFPAY | PROVIDERS: Admitting Provider Student in an Organized Health Care Education/Training Program; Emergency Provider Emergency Medicine; PCP Pediatrics; Visit Provider Student in an Organized Health Care Education/Training Program | DX: A41.9 Sepsis, unspecified organism (principal); L05.01 Pilonidal cyst with abscess; E87.6 Hypokalemia | CPT/HCPCS: 99222; 99239 ==